=== PATIENT | male | born 1945 | race Caucasian/White ===

== ENCOUNTER → 2017-02-28 | Outpatient (CLI) | payer OTHER ==
--- NOTE | 2017-02-28 12:43 | US ---
History: Abdominal pain and nausea and vomiting Study: Ultrasound of the right upper quadrant of the abdomen Comparison: None Findings: The liver is normal in size without demonstration of a mass. The gallbladder is normal in s ize without wall thickening or mass or sludge. The right kidney measures 12.18 x 7.1 x 6.4 cm without mass or hydronephrosis. The visualized pancreas is unremarkable. There is no free fluid. The IVC is patent. Impression: Negative Reported By:
== END ==
LOC: RAD 08:58
PROVIDERS: ATTEND Nurse Practitioner Family
DX: R10.84 Generalized abdominal pain (principal); R11.2 Nausea with vomiting, unspecified
CPT/HCPCS: 76705